=== PATIENT | male | born 1945 | race Caucasian/White ===

== ENCOUNTER 2017-06-09 12:14 | Emergency (ER) | payer SELFPAY ==
[~2017-06-09] VITALS: Ht 172.7 cm; Wt 81.8 kg
[2017-06-09 13:32] LABS: HEMATOCRIT 44.2 % (38.0-50.0); MCHC 32.8 G/DL (30.0-36.0); MCV 85.5 FL (86-99); MEAN PLAT.VOLUME 9.6 uM^3 (9.0-12.4); PLATELET COUNT 178 K/uL (156-360); RBC DIS.WIDTH-CV 13.4 % (11.8-14.6); RBC DIS.WIDTH-SD 42.1 % (39-53); RED BLOOD COUNT 5.17 M/uL (4.00-5.50); WHITE BLOOD COUNT 6.8 K/uL (4.1-10.2)
[2017-06-09 13:37] LABS: CHLORIDE 106 mEq/L (99-109); POTASSIUM 4.3 mEq/L (3.7-5.4); SODIUM 139 mEq/L (136-147)
[2017-06-09 13:38] LABS: GLUCOSE 126 mg/dL (70-99)
[2017-06-09 13:40] LABS: ANION GAP 10 MEQ/L (2-14)
[2017-06-09 13:42] LABS: GFR ESTIMATE (CALCULATED) > 59 mL/min/
[2017-06-09 13:43] LABS: UREA NITROGEN (BUN) 17 mg/dL (9-23)
[2017-06-09 13:46] LABS: TROP-I INTERPRETATION NEGATIVE; TROPONIN-I 0.01 ng/mL (0.0-0.30)
[2017-06-09 15:27] VITALS: BP 148/68
== END 2017-06-09 15:29 | disposition home or self-care (01) ==
LOC: EME 12:14
PROVIDERS: Emergency Medicine
DX: R55 Syncope and collapse (principal); R11.0 Nausea; R61 Generalized hyperhidrosis; R00.1 Bradycardia, unspecified; Z86.73 Personal history of transient ischemic attack (TIA), and cerebral infarction without residual deficits; Z79.02 Long term (current) use of antithrombotics/antiplatelets
CPT/HCPCS: 71010; 80048; 84484; 85027; 93005; 99281; 99285